=== PATIENT | female | born 1965 ===

== ENCOUNTER → 2023-04-19 | Outpatient (CLI) | payer OTHER | END | disposition home or self-care (01) | LOC: RAD 11:30 | DX: M25.561 Pain in right knee (principal); M25.562 Pain in left knee ==

== ENCOUNTER → 2025-01-03 | Outpatient (CLI) | payer OTHER | END | disposition home or self-care (01) | LOC: SONOGRAMA 13:53 | PROVIDERS: ATTEND Radiology Diagnostic Radiology | DX: M25.511 Pain in right shoulder (principal) ==